=== PATIENT | male | born 1990 | race African-American/Black ===

== ENCOUNTER 2020-07-10 15:16 | Emergency (ER) | payer OTHER, SELFPAY ==
--- NOTE | ~2020-07-10 | XR_ITS ---
EXAMINATION: XR shoulder RT min 2V DATE: 07/10/2020 16:05 INDICATION: Right shoulder pain. TECHNIQUE: 4 views of right shoulder were obtained. COMPARISON: None. FINDINGS: Bone alignment is normal. No fracture. Joint spaces are well maintained. IMPRESSION: 1. Normal right shoulder. Reviewed, dictated and finalized at location B. X [employer] IMPRESSION: 1. Normal right shoulder.
[2020-07-10 15:19] VITALS: BP 151/96; PULSE 62; RESP 18; TEMP 36.6; O2SAT 100
--- NOTE | 2020-07-10 16:29 | ED.UPPEXIN ---
HPI - Extremity Injury (Upper) General Chief Complaint: Extremity Injury, Upper Stated Complaint: right shoulder pain Time Seen by Provider: 07/10/20 16:08 History of Present Illness HPI narrative: Patient is a 30-year-old male who presents ER with right shoulder/back pain. Began last night and he cannot get comfortable. Is been persistent and sharp through the day. It is worse with any type of movement there is upper body such as pulling his shoulders backwards or lifting his arm. The pain will sometimes cause him to catch his breath but he is not short of breath. No runny nose/sore throat/productive cough. No known trauma. 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 He took ibuprofen x1 today with minimal change in discomfort. Related Data Allergies Allergy/AdvReac Type Severity Reaction Status Date / Time No Known Allergies Allergy Verified 07/10/20 15:22 Review of Systems Constitutional: Constitutional: Denies chills and Denies fever(s) Cardiovascular: Cardiovascular: Denies chest pain and Denies radiating jaw, neck or arm pain Respiratory: Respiratory: Denies chest congestion, Denies cough and Denies dyspnea Musculoskeletal: Musculoskeletal: Reports back pain and Denies arthralgias Neurologic: Denies focal weakness and Denies numbness PMFSH Past Medical History Medical History (Updated 07/10/20 @ 16:34 by Kieran Dhillon MD) Healthy adult male Surgical History Surgical History (Updated 07/10/20 @ 16:31 by Kieran Dhillon MD) No history of previous surgery Social History Social History (Updated 07/10/20 @ 16:31 by Kieran Dhillon MD) Smoking status: Never smoker Alcohol use details: Occasional EtOH Substance use: never Exam Narrative: Exam Narrative: GENERAL: Well-appearing, well-nourished, and in no acute distress. HEAD: Normocephalic, atraumatic. CHEST: Clear to auscultation. No respiratory distress. HEART: Regular rate and rhythm. No murmur heard. Normal peripheral pulses. EXTREMITIES: FROM of the RUE at the shoulder, normal strength. Back: No midline tenderness of the thoracic spine. There is right paraspinal muscular tenderness over the rhomboid muscle. NEURO: Alert and oriented x3. PSYCH: Normal mood and affect. Course Course Emergency Course: Informed of results. Toradol here for pain. Discussed tx plan, pt verbalized understanding. Vital Signs Vital signs: Vital Signs Temperature 97.9 F 07/10/20 15:19 Pulse Rate 62 07/10/20 15:19 Respiratory Rate 18 07/10/20 15:19 Blood Pressure 151/96 H 07/10/20 15:19 Pulse Oximetry 100 07/10/20 15:19 Temperature 97.9 F 07/10/20 15:19 Pulse Rate 62 07/10/20 15:19 Respiratory Rate 18 07/10/20 15:19 Blood Pressure 151/96 H 07/10/20 15:19 Pulse Oximetry 100 07/10/20 15:19 Discharge Plan Discharge Clinical Impression: Strain of thoracic back region Patient Disposition: Home, Self-Care Condition: Stable Instructions: Thoracic Back Strain (ED) Additional Instructions: Return to the ER if you have increased pain in your back, you develop lower extremity weakness/numbness/paralysis, you have numbness or tingling in your private parts, or you are unable to control your ability to urinate/stool. Prescriptions: New naproxen 500 mg tablet 500 mg PO BID Qty: 20 RF: 0 cyclobenzaprine 10 mg tablet 10 mg PO TID PRN (Reason: muscle spasm) Qty: 15 RF: 0 Follow-up/Referrals: Jeffry Pino MD [Physician] - 1 Week PHYSICIAN,PAPER INSPECTOR [Primary Care Provider] -
[2020-07-10] MEDS: KETOROLAC (*BKC) 60 MG/2 ML VIAL IM (16:40)
== END 2020-07-10 16:58 | disposition home or self-care (01) ==
PROVIDERS: Emergency Provider Emergency Medicine; Referring Provider Internal Medicine
DX: S29.012A Strain of muscle and tendon of back wall of thorax, initial encounter (principal); X58.XXXA Exposure to other specified factors, initial encounter
CPT/HCPCS: 73030; 96372; 99283; J1885